=== PATIENT | male | born 1995 | race Two or more races ===

== ENCOUNTER 2022-01-28 18:17 | Emergency (ER) | payer SELFPAY ==
[~2022-01-28] VITALS: Ht 172.7 cm; Wt 67.0 kg
[2022-01-28 18:25] VITALS: BP 103/58
[2022-01-28] MEDS ORDERED: TETANUS, DIPHTHERIA, PERTUSSIS VAC/PF 0.5ML (>10YR OLD) IM ONE (19:00)
[2022-01-28] MEDS ORDERED: SODIUM CHLORIDE 0.9% 1,000 ML IV ONE (19:00)
== END 2022-01-28 20:55 | disposition home or self-care (01) ==
LOC: ER 18:17
DX: R55 Syncope and collapse (principal); S61.411A Laceration without foreign body of right hand, initial encounter; F17.200 Nicotine dependence, unspecified, uncomplicated; F12.10 Cannabis abuse, uncomplicated; X58.XXXA Exposure to other specified factors, initial encounter; Y93.89 Activity, other specified; Y92.89 Other specified places as the place of occurrence of the external cause; Y99.8 Other external cause status
CPT/HCPCS: 12002; 73130; 90471; 90715; 96360; 99283; J7030